=== PATIENT | male | born 1975 | race Hispanic/Latino ===

== ENCOUNTER 2019-11-19 18:52 | Emergency (ER) | payer BC, OTHER | END 2019-11-19 19:48 | disposition home or self-care (01) | LOC: ERS 18:52 | DX: R05 Cough (principal); Z79.899 Other long term (current) drug therapy | CPT/HCPCS: 99283 ==

== ENCOUNTER 2020-11-16 15:19 | Outpatient (CLI) | payer BC | END 2020-11-16 15:20 | disposition home or self-care (01) | LOC: BICCT 15:19 | PROVIDERS: ATTEND Family Medicine | DX: R10.9 Unspecified abdominal pain (principal); R31.9 Hematuria, unspecified | CPT/HCPCS: 74176 ==

== ENCOUNTER 2023-07-29 14:10 | Outpatient (CLI) | payer BC | END 2023-07-29 14:11 | disposition home or self-care (01) | LOC: RAD 14:10 | PROVIDERS: ATTEND Nurse Practitioner Family | DX: R20.2 Paresthesia of skin (principal) | CPT/HCPCS: 72070; 72220 ==